=== PATIENT | female | born 1960 | race Caucasian/White ===

== ENCOUNTER → 2022-11-12 | Outpatient (CLI) | payer SELFPAY, OTHER ==
--- NOTE | 2022-11-12 15:14 | US_ITS ---
INDICATION: PAIN/OVARIAN CYST EXAMINATION: Ultrasound US Pelvis Non OB Complete With Transvaginal Imaging TECHNIQUE: Transabdominal and transvaginal pelvic ultrasound was performed. Grayscale, spectral waveform, and color flow Doppler evaluation of the adnexa. COMPARISON: None. FINDINGS: The uterus measures 7.5 x 2.7 x 4 cm. The endometrium is not well visualized, but is not grossly thickened. Myometrium is mildly heterogeneous diffusely. The left ovary is not visualized. A cystic lesion in the right ovary measures approximately 2.4 x 2.8 cm. The lesion is mildly complex with low-level internal echoes as well as few septations or daughter cysts. Flow is demonstrated to the right ovary on the transabdominal images, but is not clearly identified on the transvaginal images. The bladder is distended measuring 734 mL. No gross free pelvic fluid. US/Pelvic (Non ) IMPRESSION: 2.4 x 2.8 cm mildly complex cystic lesion in the right ovary. Ovarian malignancy is a consideration. PLUG STITCHER consultation is recommended. Left ovary not visualized. Electronically Signed: Leander Rubio MD at 5:12 EDT ,
== END | disposition home or self-care (01) ==
LOC: US 15:12
PROVIDERS: Referring Provider Nurse Practitioner Family; Visit Provider Nurse Practitioner Family
DX: R10.2 Pelvic and perineal pain (principal); N83.201 Unspecified ovarian cyst, right side
CPT/HCPCS: 76830; 76856

== ENCOUNTER 2023-01-22 08:11 | Day surgery (SDC) | payer SELFPAY, OTHER ==
--- NOTE | 2023-01-21 17:35 | PCM.HP.BLA ---
History and Physical Date of Admission: 01/22/23 Pre-Op History and Physical ? HPI: The patient is a 62 year old female presenting for pre-operative visit. She is scheduled for diagnostic laparoscopy and Lap BSO, for Pelvic pain, right ovarian cyst on 01/22/23. Procedure discussed along with risks, benefits and complications. Other alternatives discussed for management. Consent form signed? Yes. ? ? PAST MEDICAL HISTORY PAST MEDICAL HISTORY Diagnosis Date ? Tubal 1989 ? ? PAST SURGICAL HISTORY PAST SURGICAL HISTORY Procedure Laterality Date ? APPENDECTOMY ? 1989 ? DELIVERY ONLY ? 03/12/2000 ? DELIVERY ONLY ? ? ? 1994 ? ? ? CURRENT MEDICATIONS Current Outpatient Medications Medication Sig Dispense Refill ? multivit,thx,calcium,iron,mins (MULTIVITAMIN AND MINERAL ORAL) Take 1 tablet by mouth once daily. ? ? ? sulfamethoxazole-trimethoprim (BACTRIM DS) 800-160 mg per tablet Take 1 tablet by mouth every 12 hours. ? ? ? No current facility-administered medications for this visit. ? ? ALLERGIES: Patient has no known allergies. ? PERSONAL HISTORY: SOCIAL HISTORY Social History ? Tobacco Use ? Smoking status: Never ? Smokeless tobacco: Never Vaping Use ? Vaping Use: Never used Substance Use Topics ? Alcohol use: Never ? Drug use: Never ? FAMILY HISTORY: FAMILY HISTORY FAMILY HISTORY Problem Relation Age of Onset ? Ovarian cancer Mother 79 ? stage 4 ? Dementia Father ? ? Kidney transplant Brother ? ? No Known Problems Brother ? ? Heart disease Maternal Grandfather ? ? Colon Cancer Paternal Grandfather ? ? ? REVIEW OF SYMPTOMS: negative except as noted above PHYSICAL EXAMINATION: ? VITALS: Blood pressure 104/70, pulse 71, weight 190 lb (86.2 kg), SpO2 96 %. ? GENERAL: The patient is well nourished, well hydrated in no acute distress. , The patient is oriented to time, place, and person. NECK: full range of motion LUNGS: Clear to auscultation bilaterally. no wheezes, rhonchi or rales HEART: Regular rate and rhythm, Normal heart sounds, and No murmurs or gallops ? ? IMPRESSION: 62yo female with right ovarian cyst, pelvic pain ? PLAN: Diagnostic laparoscopy and Laparoscopic BSO ? Pt has been counseled on risks/benefits and alternatives of surgery including but not limited to anesthesia, bleeding, infection, injury to pelvic structures including bowel, bladder, ureters and vessels. Pt wishes to proceed with surgery at this time. ? Pt planning to get colonoscopy- order was placed ? Went to [facility] ER 01/06/23- did EKG, Labs and CT done. See Care everywhere- no need for labs pre op. ? I have reviewed and updated past medical and surgical history, medications and allergies Jenny Edwards MD
[2023-01-22] VITALS (7 sets, daily range): BP systolic 98–115; BP diastolic 63–71; PULSE 58–74; RESP 16–18; TEMP 36.1–36.2; O2SAT 94–100; BMI 31.6
--- NOTE | 2023-01-22 | OV_PTH ---
PATIENT: AUGUSTUS WRIGHT LOC: [facility] [place] U#:[id number] AGE/SX: 62/F ROOM: RE01/22/[address]: Dr. Jenny Lutz, MDDOB: 1960 BED: DIS: 01/22/2023 SPEC #: [id number] RECD: 01/22/23 13:21 STATUS: TENA JEROMEBeatriz #: [id number] DEO: 01/22/23 00:[address]: Jenny Lutz DEPT: SURGICAL PATHOLOGY RECD BY: Carlitos Sadler ENTERED: 01/22/23 13:23 SP TYPE: OVARY OTHR DR: YULISA Martinez Tissues: A - Endocervical B - Left ovary C - Right ovary Procedures: Surgery Specimen Level IV HEADER OPERATION: Laparoscopic salpingo-oophorectomy, diagnostic laparoscopy PRE-OP DIAGNOSIS: Right ovarian cyst, pelvic pain TISSUE SUBMITTED: A - Endocervical polyp, B - Left ovary and left fallopian tube, C - Right ovary MICROSCOPIC DIAGNOSIS A. Endocervical polyp, polypectomy: Benign endocervical polyp. B. Left ovary and left fallopian tube, salpingo-oophorectomy: Fallopian tube - focal calcifications. Ovary - Papillary cystadenofibroma. -mesothelial inclusion cysts with focal calcification. - Focal tubo-ovarian adhesions. C. Right ovary and fallopian tube, salpingo-oophorectomy: Fallopian tube - no pathologic diagnosis. Ovary - simple cystadenofibroma. - Mesothelial inclusion cysts. - Focal tubo-ovarian adhesions. SJ:sendy 01/25/2023 COMMENT Case has been reviewed in consultation with Dr. Thomas who concurs with the above diagnosis. IDC:AM MICROSCOPIC DESCRIPTION Slides are reviewed. GROSS DESCRIPTION A - Received in fixative is one container labeled with the patient's name and designated endocervical polyp. The specimen consists of a mars-pink polyp measuring 2.0 x 1.0 x 0.3 cm. The specimen is bisected and submitted entirely in one cassette. B - Received in fixative is one container labeled with the patient's name and designated left ovary and left fallopian tube. The specimen consists of a fallopian tube and adjacent ovary. The fallopian tube measures 6.5 cm in length and 0.4 cm in diameter. The fimbrial end is identified. Focal tubo-ovarian adhesions are noted. Sections reveal unremarkable cut surfaces. Adjacent ovary measures 3.0 x 2.0 x 1.5 cm. Sections reveal multiple cysts filled with clear fluid. The largest cyst measures 1.0 cm in greatest dimension. Motor Builder Assembler sections are submitted in three cassettes as follows: 1 - fallopian tube, 2?&?3??ovary with adjacent adherent portion of fallopian tube. C - Received in fixative is one container labeled with the patient's name and designated right ovary. The specimen consists of a soft to cystic ovary and adjacent fallopian tube. The ovary measures 4.0 x 3.0 x 3.0 cm and the fallopian tube measures 4.0 cm in length and up to 0.5 cm in diameter. Possible fimbrial end is noted adherent to the ovary. The entire specimen weighs 18.2 gm. Focal area of tubo-ovarian adhesions are noted. The external surface is smooth and inked black. No papillations are identified. Sections of the ovary reveal multiple cysts filled with clear to nydia-colored fluid. The largest cyst measures 2.5 cm in greatest dimension. No papillations are identified. The cyst wall is smooth and measures 0.1 cm in thickness. Motor Builder Assembler sections are submitted in four cassettes as follows: 1??fallopian tube, 2-4 - ovary. / SJ:rg 01/22/2023 TC:1 CPT: 24378 x2, 42632
[2023-01-22] MEDS: Lactated Ringers 1,000 ML 15 ML IV ×2 (08:42→11:25)
[2023-01-22] MEDS: Bupivacaine Mpf 0.5% 30 ML VIAL (12:25)
--- NOTE | 2023-01-22 12:51 | PCM.OPRPT ---
Report of Operation Date of Procedure: 01/22/23 Pre-Operative Diagnosis: right ovarian cyst, pelvic pain Post-Operative Diagnosis: same Surgery/Procedure Performed:: Laparoscopic BSO Description of Surgical Findings:: Possible small remnant of right fallopian tube present. Adhesions around right ovary. Approximately 3 cm right ovarian cyst. No other pelvic abnormalities noted. Surgeon: Jenny Lutz public welfare worker: Idalia Guillen Type of Anesthesia: General and Local Special Medications: .5% marcaine Specimen's removed: bilateral ovaries, left tube, possible remnant of right tube (h/o ectopic s/p surgery) Drains: none Estimated Blood Loss (mL): 5cc Fluids Replaced: 1000 Description of Procedure: After informed consent was obtained patient was taken to the operating room she was placed in supine position she was given anesthesia. She was then placed in the [facility] stirrups and she was prepped and draped in normal sterile fashion. Bladder was drained prior to the start of procedure. At this time attention was turned to the vaginal portion where weighted speculum placed at posterior fornix vagina single-tooth tenaculum was used to gently grasp the internal the cervix. uterus was gently sounded to approximately 7cm. Uterine manipulator was placed without difficulty. Legs then placed in parallel with the abdomen the tenaculum and the weighted speculum were removed. 2 towel clamps were placed at umbilicus. After Marcaine was injected at umbilicus a small incision was made and a 5 mm trocar was placed under direct visualization. CO2 gas was used to insufflate the intra-abdominal cavity. Upon inspection right tube with cyst- adhesions around ovary with possible remnant of right tube but no well identified tube appreciated. At this time then the LLQ port was placed again Marcaine was injected small incision was made a knife and the 5 mm trocar was placed. this was repeated on right side. Ligasure was used to coagulate and ligate along IP ligament, uteroovarian and the mesosalpinx bilaterally until ovaries and tube (on left) removed completely. Good hemostasis was appreciated. The umbilical incision was extended to 10mm and endocatch bag placed- specimens collected and removed. ALLIS clamps used to grasp fascia then 0-vicryl was then used to closed fascia of umbilical incision. Further inspection laparoscopically was performed- good hemostasis noted. Both ureters were noted. The gas was desufflated on from the intra-abdominal cavity. The trochars were removed. Skin was closed using 4-0 Monocryl in a subcutaneous fashion. Dermabond glue was placed. Instrument lap and needle counts were correct ?2. The uterine manipulator was removed. Vaginal sweep was performed it was negative. There were no complications anticipated normal postoperative course for this patient. Dr. Guillen assisted in Manipulation of camera and tissue retraction. Grafts/Implants Used: none Procedure Start Time: 11:51 Procedure Stop Time: 12:30 Complications none Admit VTE Documentation VTE Present on Admission: Yes VTE Mechan Device Prophylaxis: SCD's VTE Pharm Prophylaxis ordered?: No Reason prophylaxis not ordered:: Procedure Not Indicated
--- NOTE | 2023-01-22 12:58 | DCINST_ITS ---
Discharge Instructions Diet Discharge Diet: No restrictions Activity May resume sexual activity in: 2 weeks Lifting Restrictions: 20-25 lbs Dressing / Incision Call your doctor if your incision/area has: Continuous Slow Oozing, Sudden Increased Bleeding, Increased Pain/ Swelling, Increased Redness, Foul Smelling Discharge and Swelling at the incision site Call your doctor if you observe: Fever of 101 or Higher, Inability to urinate, Inability to have a bowel movement, Using more than 1 pad per hour and Uncontrolled pain Additional Dressing/Incision Instructions:: You have skin glue over your incision sites, do not pick off. You may shower and let the soap and water run over the incision sites and dab dry. Follow Up Care Please Follow Up With: Jenny Lutz MD When: 1-2 weeks post OP if you need an appointment please call [phone] Test Results: Test results from this visit will be discussed in further detail at your follow- up appointment, if applicable. Discharge Plan Admission Attending Provider: Jenny Lutz Primary Care Provider: Idalia Webb Discharge Orders/Prescriptions Prescriptions: No Action amoxicillin-pot clavulanate 875-125 mg tablet 1 tab PO Q12H Qty: 14 0RF Referrals / Follow Up: Idalia Webb PA [Primary Care Provider] - Disposition Disposition (needs filled in before D/C Order can be placed): Home, Self Care
[2023-01-22] MEDS: Oxycodone/Apap 5/325 Tablet PO (14:01)
== END 2023-01-22 14:44 | disposition home or self-care (01) ==
LOC: SDC 08:11 → AC 08:14
PROVIDERS: Visit Provider Obstetrics & Gynecology
PROC: (CPT 58558; principal; 2023-01-22 09:45)
DX: N84.1 Polyp of cervix uteri (principal); D27.0 Benign neoplasm of right ovary; D27.1 Benign neoplasm of left ovary; Z90.49 Acquired absence of other specified parts of digestive tract; Z87.440 Personal history of urinary (tract) infections
CPT/HCPCS: 58558; 58661; 00952; 88305; J7120; J2405